=== PATIENT | female | born 1995 ===

== ENCOUNTER 2017-10-14 17:51 | Emergency (ER) | payer OTHER ==
[2017-10-14 18:04] VITALS: BP 113/67; PULSE 77; RESP 20; TEMP 98.1; O2SAT 98
--- NOTE | 2017-10-14 18:18 | C.PDOC ---
History Of Present Illness Patient with a PMHx of asthma, reports 1 week history of cough and nasal congestion which is associated with post-tussive emesis. The patient reports that she does not have an inhaler at this time as she is traveling from [place] 2 weeks ago. Denies fever, nausea, vomiting, diarrhea, chest pain, SOB. Time Seen by Provider: 10/14/17 18:17 Chief Complaint (Nursing): Cough, Cold, Congestion History Per: Patient History/Exam Limitations: no limitations Current Symptoms Are (Timing): Still Present Severity: Mild Past Medical History Vital Signs: Last Vital Signs Temp 98.1 F 10/14/17 18:02 Pulse 77 10/14/17 18:02 Resp 20 10/14/17 18:02 BP 113/67 10/14/17 18:02 Pulse Ox 98 10/14/17 19:53 - Medical History PMH: Asthma, Bronchitis Surgical History: Appendectomy Family History: States: Unknown Family Hx - Social History Hx Alcohol Use: No Hx Substance Use: No - Immunization History Hx Tetanus Toxoid Vaccination: No Hx Influenza Vaccination: No Hx Pneumococcal Vaccination: No Review Of Systems Except As Marked, All Systems Reviewed And Found Negative. Physical Exam - Physical Exam Appears: Non-toxic, No Acute Distress Skin: Normal Color, Warm, No Rash Head: Atraumatic, Normacephalic Eye(s): bilateral: Normal Inspection, PERRL, EOMI Ear(s): Bilateral: Normal Oral Mucosa: Moist Throat: No Erythema, No Exudate Neck: Normal ROM, Supple Chest: Symmetrical, No Tenderness Cardiovascular: Rhythm Regular, No Friction Rub, No Murmur Respiratory: No Rales, No Rhonchi, No Stridor, Wheezing (scant wheezing bilateral) Gastrointestinal/Abdominal: Normal Exam, Soft, No Tenderness Back: Normal Inspection, No CVA Tenderness Extremity: Normal ROM, No Tenderness, No Swelling Neurological/Psych: Oriented x3, Normal Motor, Normal Sensation Gait: Steady ED Course And Treatment O2 Sat by Pulse Oximetry: 98 (on RA) Pulse Ox Interpretation: Normal - Radiology CXR: Interpreted by Me CXR Interpretation: Yes: No Acute Disease. No: Infiltrates Medical Decision Making Medical Decision Making: Old records reviewed, no priors records. CXR is negative. On re-exam the patient reports improvement of symptoms. Abdomen is soft, non-tender and tolerating PO well. Lungs are CTA, Pulse ox: 99 % on RA, heart is RRR. Follow up with the medical doctor within 1-2 days. return if worsened. Disposition - Disposition Referrals: [facility] [Outside] Disposition: HOME/ ROUTINE Disposition Time: 19:50 Condition: GOOD Additional Instructions: Follow up with the medical doctor within 1-2 days. return if worsened. Prescriptions: Albuterol HFA [Ventolin HFA 90 mcg/actuation (8 g)] 1 puff IH Q6 PRN #100 puff PRN Reason: Wheezing Benzonatate [Tessalon Perles] 100 mg PO TID PRN #21 sgl PRN Reason: Cough predniSONE [Prednisone] 10 mg PO BID #10 tab Spacer, Inhalation [Aerochamber] 1 inh IH QID #1 dev Instructions: Acute Bronchitis Forms: [facility] (Y[place]i) - Clinical Impression Clinical Impression: Asthmatic bronchitis
[2017-10-14] MEDS ORDERED: Albuterol-Ipratrop 3 mg / 0.5 (3 ml) UD ONE (19:19)
[2017-10-14] MEDS ORDERED: Albuterol-Ipratrop 3 mg / 0.5 (3 ml) UD INH STA (19:24)
--- NOTE | 2017-10-15 09:16 | RAD ---
HISTORY: cough, rhonchi on the right COMPARISON: No prior. TECHNIQUE: Chest PA and lateral FINDINGS: LUNGS: No active pulmonary disease. PLEURA: No significant pleural effusion identified. No pneumothorax apparent. CARDIOVASCULAR: Normal. OSSEOUS STRUCTURES: No significant abnormalities. VISUALIZED UPPER ABDOMEN: Normal. OTHER FINDINGS: None. IMPRESSION: No active disease.
== END 2017-10-14 20:15 | disposition home or self-care (01) ==
LOC: C.ER 17:51
DX: J45.909 Unspecified asthma, uncomplicated (principal)